=== PATIENT | female | born 1990 | race Caucasian/White ===

== ENCOUNTER 2025-09-19 21:19 | Emergency (ER) | payer OTHER, SELFPAY ==
[2025-09-19 21:19] VITALS: BP 113/83; PULSE 97; RESP 20; O2SAT 99
[2025-09-19] MEDS: FAMOTIDINE 20 MG/2 ML VIAL IV PUSH (21:50)
--- NOTE | 2025-09-19 23:30 | ED_ITS ---
HPI - Allergic Reaction General Chief complaint: Allergic Reaction Stated complaint: allergic reaction Time Seen by Provider: 09/19/25 21:30 Source: patient Mode of arrival: EMS Limitations: no limitations History of Present Illness HPI narrative: This is a 34 year old female that presents to the ER for an allergic reaction. Reports she had just eaten dinner. She had eaten tacos with sour cream, which she has eaten many times before. Reports she started to feel hot, her face started swelling, rash, vomiting, diarrhea. No previous allergic reactions. No new medications or other known exposures. Related Data Home Medications ?Medication ?Instructions ?Recorded ?Confirmed ?Last Taken ?Type blood-glucose sensor (Dexcom G7 #1 ea 08/03/25 5 Unknown History Sensor device) insulin lispro 100 unit/mL subcut 08/03/25 08/03/25 Un known History subcutaneous solution insulin pump cart,auto,BT,G6/7 #5 ea 08/03/25 08/03/25 Unknown History (Omnipod 5 G6-G7 Pods (Gen 5) subcutaneous cartridge) Allergies Allergy/AdvReac Type Severity Reaction Status Date / Time sumatriptan AdvReac Intermediate Hypotension Verified 08/03/25 09:28 Review of Systems Review of Systems: All systems reviewed & are unremarkable except as noted in HPI and below PMFSH Past Medical History Medical History (Updated 09/20/25 @ 00:57 by Radha Rojas PA-C) Cryptic tonsil Motion sickness Allergic rhinitis Hypertrophy of nasal turbinates Chronic nasal congestion Dysphagia, oropharyngeal phase Laryngopharyngeal reflux (LPR) Family History Family History Mother Family history of migraine headaches Sibling Family history of attention deficit hyperactivity disorder (ADHD) Grandparent Diabetes mellitus Social History Social History Smoking status: Never smoker Second hand tobacco smoke exposure: No Alcohol intake: never Exam Narrative: GENERAL: Well-appearing, well-nourished, and in no acute distress. HEAD: Normocephalic, atraumatic. EYES: EOMI. Mild swelling of the eyelids ENT: Nares clear, no rhinorrhea or epistaxis. Mucous membranes moist. Oropharynx without tonsillar hypertrophy exudate or other lesions. NECK: Supple. No adenopathy or masses. CHEST: Clear to auscultation. No respiratory distress. No wheezes rales or rhonchi HEART: Regular rate and rhythm. No murmur heard. Normal peripheral pulses. EXTREMITIES: Normal range of motion. No edema. SKIN: Warm, dry, no rash. NEURO: No focal deficits. Alert and oriented x3. PSYCH: Normal mood and affect Course Vital Signs Vital signs: Vital Signs Pulse Rate 97 09/19/25 21:19 Respiratory Rate 20 09/19/25 21:19 Blood Pressure 113/83 09/19/25 21:19 Pulse Oximetry 99 09/19/25 21:19 Oxygen Delivery Room Air 09/19/25 21:19 Pulse Rate 97 09/19/25 21:19 Respiratory Rate 20 09/19/25 21:19 Blood Pressure 113/83 09/19/25 21:19 Pulse Oximetry 99 09/19/25 21:19 Oxygen Delivery Room Air 09/19/25 21:19 MDM MDM Narrative Medical decision making narrative: Patient presents the emergency department after an allergic reaction. She had been given Benadryl and epi by EMS. Upon my evaluation patient's symptoms were largely resolving. She was given Pepcid and Solu-Medrol additionally. She was watched in the ER for several hours with continued relief of her symptoms. Will be given EpiPen prescription for home. Follow-up with PCP Differential Diagnosis Differential Diagnosis: Anaphylaxis, allergic reaction, hives, urticaria Critical Care Time Critical Care Time Critical Care Time: No Discharge Plan Discharge Clinical Impression: Allergic reaction Qualifiers: Encounter type: initial encounter Qualified Code(s): T78.40XA - Allergy, unspecified, initial encounter Patient Disposition: Home Condition: Improved Instructions: General Allergic Reaction (ED) Additional Instructions: Return to the emergency department if you experience difficulty swallowing, trouble breathing, swelling of your mouth or tongue, or any other symptoms that are concerning to you Take a Pepcid and Zyrtec daily. Benadryl as needed for severe itching Follow-up with primary care doctor Patient Language: [place] Prescriptions: New epinephrine [EpiPen 2-Omar] 0.3 mg/0.3 mL auto-injector 0.3 mg IM Q5-15M PRN (Reason: anaphylaxis) Qty: 2 0RF Rx Instructions: do not exceed 3 doses per episode No Action insulin lispro 100 unit/mL solution subcut (DME) Dexcom G7 Sensor Device See Rx Instructions .ROUTE .MEDSUPPLY Qty: 1 Rx Instructions: As directed (DME) Omnipod 5 G6-G7 Pods (Gen 5) Cartridge See Rx Instructions .ROUTE .MEDSUPPLY Qty: 5 Rx Instructions: As directed omeprazole 40 mg capsule,delayed release(DR/EC) 40 mg PO DAILY 30 Days Qty: 30 2RF fluticasone propionate 50 mcg/actuation spray,suspension 1 spray intranasal DAILY 30 Days Qty: 16 2RF Rx Instructions: administer into each nostril Follow-up/Referrals: Kraig,Cathi, [employer] [Primary Care Provider, Unknown]
[2025-09-20 01:15] VITALS: BP 113/67; PULSE 93; RESP 20; O2SAT 98
== END 2025-09-20 01:15 | disposition home or self-care (01) ==
PROVIDERS: Emergency Provider Physician Assistant; PCP Family Medicine
DX: T78.40XA Allergy, unspecified, initial encounter (principal)
CPT/HCPCS: 96374; 96375; 99284; J2919